=== PATIENT | male | born 1965 | race Caucasian/White ===

== ENCOUNTER → 2024-03-14 10:41 | Emergency (ER) | payer BC, SELFPAY ==
[2024-03-14 10:43] VITALS: BP 191/95
[2024-03-14 11:49] VITALS: BP 157/78
[2024-03-14 12:00] VITALS: BP 143/73
[2024-03-14 13:00] VITALS: BP 188/94
[2024-03-14 13:23] LABS: % Basophils 0.9 % (0-2); % Eosinophils 1.4 % (0-6); % Immature Granulocytes 0.3 % (0-0.5); % Lymphocytes 19.8 % (20.5-51.1); % Neutrophils 67.6 % (42.2-75.2); Absolute Basophils 0.1 10^3/uL (0-0.2); Absolute Eosinophils 0.1 10^3/uL (0-0.7); Absolute Lymphocytes 1.4 10^3/uL (1.2-3.4); Absolute Monocytes 0.7 10^3/uL (0.1-0.6); Absolute Neutrophils 4.7 10^3/uL (1.4-6.5); Hematocrit 39.2 % (39.0-52.0); Hemoglobin 13.9 g/dL (13.0-18.0); Mean Corp Hgb Conc. 35.5 g/dL (33.0-37.0); Mean Corpuscular Hgb 32.3 pg (27.0-31.0); Mean Platelet Volume 9.7 fL (7.4-10.4); Nucleated Red Blood Cells % 0 % (-); Platelet Count 169 10^3/uL (130-400); Red Blood Cell Count 4.31 10^6/uL (4.70-6.10)
[2024-03-14 13:37] LABS: ALT (SGPT) 29 U/L (0-50); AST (SGOT) 41 U/L (17-59); Albumin 3.8 g/dl (3.5-5.0); Alkaline Phosphatase 66 U/L (38-126); Blood Urea Nitrogen 8 mg/dl (9-20); Calcium 9.1 mg/dl (8.4-10.2); Carbon Dioxide 26 mmol/L (22-30); Chloride 103 mmol/L (98-107); Glucose 104 mg/dl (70-99); Potassium 4.4 mmol/L (3.5-5.1); Sodium 134 mmol/L (135-145); Total Protein 6.8 g/dl (6.3-8.2); eGFR > 60.00
[2024-03-14 13:48] LABS: Troponin I < 0.012 ng/ml
[2024-03-14 13:52] LABS: Lipase 139 U/L (23-300)
[2024-03-14 14:29] LABS: Urine Albumin Negative (Neg - Trace); Urine Bilirubin Negative (Negative); Urine Character Clear (Clear); Urine Color Yellow; Urine Glucose Negative (Negative); Urine Ketone Negative (Negative); Urine Leukocyte Negative (Negative); Urine Nitrite Negative (Negative); Urine Occult Blood Negative (Negative); Urine Urobilinogen Negative (Neg - 1+)
--- NOTE | 2024-03-14 15:14 | ED.GENMED ---
History of Present Illness
General
Chief Complaint: Back Pain
Source: patient and spouse
Exam Limitations: none
Time Seen by Provider: 03/14/24 11:49
Nursing documentation reviewed up to this point in time: agreed with
History of Present Illness
History of Present Illness:
58-year-old male with past medical history of hypertension presenting to the emergency department today with concerns of intermittent back pain to the right upper back with radiation to the right shoulder and worsening shortness of breath over the
past few weeks. Denies any recent trauma surgery immobilization or history of blood clots. Does have chronic leg swelling that is symmetrical bilaterally.
Past History
Past History
ED Past Medical History: HTN
ED Past Surgical History: None and Orthopedic
Social History
Tobacco: Former smoker
Alcohol: Occasional
Drug: None
Personal:
Living: with family
Employment: Employed
Family History
Family History: Other (no Significant)
Review of Systems
Review of Systems
Allergies reviewed?: Yes
All Other Systems: ROS reviewed and negative except as documented in HPI and ROS
Phy Exam
Physical Exam
Physical Exam:
GENERAL: Alert , in no apparent distress
EYE: pupils equal and reactive
NECK: Supple, no significant adenopathy.
ENT: o/p clr, mmm.
CARDIAC: Regular rate and rhythm .
LUNGS: Clear breath sounds bilaterally, no acute respiratory distress, no wheezes/rales/rhonchi
ABDOMEN: Soft, without focal tenderness, no r/g, no cvat
NEUROLOGICAL: Alert and oriented, no focal neuro deficits
SKIN: Warm and dry, skin intact.
MUSCULOSKELETAL: +1 pitting edema bilaterally distal to the knees. No redness or warmth. Well perfused.
PSYCH: Normal and appropriate interaction.
Course
Orders/Labs/Results
Orders:
Orders
03/14/24 10:47
EKG [Electrocardiogram (*1)] Urgent
Reason for Study: Chest Pain
EKG- Treatment ONCE
03/14/24 12:57
CT Chest Pe Study Urgent
Comment:
Reason For Exam: uppe rback pain, sob
03/14/24 13:11
Complete Blood Count/With Diff Urgent
Comprehensive Metabolic Panel Urgent
Lipase Urgent
Troponin I Urgent
03/14/24 14:09
Urinalysis Reflex To Culture Urgent
Date Specimen was Collected: 03/14/24
Time Specimen was Collected: 14:01
Abnormal Lab Results
03/14/24
13:11
RBC 4.31 L 10^6/uL
(4.70-6.10)
MCH 32.3 H pg
(27.0-31.0)
Absolute Monos (auto) 0.7 H 10^3/uL
(0.1-0.6)
Lymphocytes % 19.8 L %
(20.5-51.1)
Monocytes % 10.0 H %
(1.7-9.3)
Sodium 134 L mmol/L
(135-145)
BUN 8 L mg/dl
(9-20)
Glucose 104 H mg/dl
(70-99)
03/14/24 13:11
03/14/24 13:11
Vital Signs
Initial and Last Documented VS:
Initial Vital Signs
Temp Pulse Resp BP Pulse Ox
98.4 F 60 18 191/95 99
03/14/24 10:43 03/14/24 10:43 03/14/24 10:43 03/14/24 10:43 03/14/24 10:43
Last Documented Vital Signs
Temp Pulse Resp BP Pulse Ox
98.4 F 55 19 188/94 96
03/14/24 10:43 03/14/24 15:45 03/14/24 15:45 03/14/24 13:00 03/14/24 15:45
MDM/Problems Addressed
MDM/Problems Addressed:
58-year-old male presenting to the emergency department today with concerns of worsening shortness of breath as well as. Not specifically with mint. Symptoms not obviously mechanical and not reproducible to palpation removed concerning this plan
for assessment of alternate potential intrathoracic etiology. CT PE ordered for further assessment of possible clot or aortic pathology. Patient with no emergent findings on exam normal troponin no evidence of ACS normal CT angiogram of the chest.
Patient stable for outpatient follow-up return precautions given.
*Critical Care Note
Total Time (30-74mins, 75-104mins- exclusive of procedures): Not Applicable
ED Attending Note
-
Portions of this chart may have been created with voice recognition software.� Occasional wrong word or��sound alike� substitutions may have occurred due to the inherent limitations of voice recognition software.
Discharge Plan
Departure
Patient Disposition: Home (Routine Discharge)
Date of Disposition: 03/14/24
Time of Disposition: 16:53
Patient with high blood pressure during this ER visit?: No
Condition: Good
Covid-19: Not Applicable
Discharge Problem:
Upper back pain, Shortness of breath
Instructions: Chest Pain CBC Follow Up
Prescriptions:
No Action
amlodipine 5 mg tablet
5 mg PO DAILY
ibuprofen 200 mg tablet
400 - 600 mg PO Q6HPRN PRN (Reason: moderate pain) Qty: 1 0RF
phenazopyridine [Pyridium] 200 mg Tablet
200 mg PO BID
tamsulosin 0.4 mg Capsule
0.4 mg PO DAILY
Referrals:
UNKNOWN - PT DOES,NOT KNOW [Family Provider] -
Activity Restrictions/Additional Instructions:
You came to the emergency department today with concerns of upper back pain shortness of breath. You had a reassuring assessment. Please have close with cardiology and your primary care doctor. Return to the emergency department for any
worsening, new or concerning symptoms.
Interventions
Interventions:
*Risk Screen - Suicide Last Done: 03/14/24 10:45
*General Assessment Last Done: 03/14/24 10:45
*Neglect/Abuse Screening Last Done: 03/14/24 10:45
ED- Fall Risk Assessment Last Done: 03/14/24 13:16
*ED COVID-19 Vaccine History Last Done: 03/14/24 10:45
ED-Musculoskeletal Assessment Last Done: 03/14/24 13:16
Discharge Date and Time
Print Language: SCOTTISH
== END | disposition home or self-care (01) ==
LOC: EMR 10:41
PROVIDERS: Physician Assistant; EMERGENCY PHYSICIAN Emergency Medicine
DX: R06.02 Shortness of breath (principal); M54.6 Pain in thoracic spine; M25.511 Pain in right shoulder; R60.0 Localized edema; R07.9 Chest pain, unspecified; I10 Essential (primary) hypertension; Z87.891 Personal history of nicotine dependence; Z87.442 Personal history of urinary calculi
CPT/HCPCS: 99285; 71275; 80053; 81003; 83690; 84484; 85025; 93005; Q9967

== ENCOUNTER → 2024-04-07 07:43 | Outpatient (REF) | payer BC, SELFPAY | LOC: RCS 07:43 | PROVIDERS: ATTENDING PHYSICIAN Internal Medicine Cardiovascular Disease; FAMILY PHYSICIAN Physician Assistant | DX: Z76.89 Persons encountering health services in other specified circumstances (principal); R06.02 Shortness of breath; I10 Essential (primary) hypertension | CPT/HCPCS: 93017 ==

== ENCOUNTER → 2024-04-12 07:15 | Outpatient (REF) | payer BC, SELFPAY | LOC: HWRCS 07:15 | PROVIDERS: ATTENDING PHYSICIAN Internal Medicine Cardiovascular Disease; FAMILY PHYSICIAN Physician Assistant | DX: Z76.89 Persons encountering health services in other specified circumstances (principal); R06.02 Shortness of breath; I10 Essential (primary) hypertension; M54.9 Dorsalgia, unspecified | CPT/HCPCS: 93306 ==

== ENCOUNTER 2025-06-29 06:37 | Day surgery (SDC) | payer BC, SELFPAY ==
[2025-06-14 13:43] VITALS: BMI 40.5
[2025-06-29] VITALS (8 sets, daily range): BP systolic 146–185; BP diastolic 67–89; BMI 40.5
[2025-06-29] MEDS: NORMOSOL-R/PLASMALYTE-A 1000 IV (13:29)
== END 2025-06-29 17:20 | disposition home or self-care (01) ==
LOC: SDS 06:37
PROVIDERS: ATTENDING PHYSICIAN Surgery; FAMILY PHYSICIAN Physician Assistant
DX: K64.3 Fourth degree hemorrhoids (principal); K64.4 Residual hemorrhoidal skin tags
CPT/HCPCS: 46260; 88304; 93005